=== PATIENT | male | born 1995 | race Caucasian/White ===

== ENCOUNTER 2018-07-20 18:33 | Emergency (ER) | payer OTHER ==
[~2018-07-20 18:33] MED LIST: Iopamidol 370 76% 100 ML VIAL ONE
[2018-07-20] MEDS ORDERED: Ondansetron PF 4 MG/2 ML Vial ONE ×2 (18:43→20:14)
[2018-07-20] MEDS ORDERED: Promethazine HCl 25 MG/ML VIAL ONE (18:57)
[2018-07-20] MEDS ORDERED: Sodium Chloride 0.9% 1,000 ML ONE ×2 (18:57→20:14)
[2018-07-20 19:04] LABS: #Basophils 0.1 thou/uL (0.0-0.2); #Lymphocytes 1.1 thou/uL (1.20-3.40); #Monocytes 0.8 thou/uL (0.11-0.59); #Neutrophils 11.2 thou/uL (1.40-6.50); %Basophils 0.5 % (0.0-1.0); %Neutrophils 85.5 % (42.0-75.0); Hemoglobin 16.2 g/dL (14.0-18.0); Mean Corpuscular HGB CONC 32.4 g/dL (32.0-36.0); Mean Corpuscular Hemoglobin 30.4 pg (27.0-31.0); Mean Corpuscular Volume 93.8 fL (78.0-98.0); Mean Platelet Volume 6.9 fL (7.4-10.4); Platelet Count 302 thou/uL (130-400); Red Blood Cell (RBC) Count 5.33 mill/uL (4.70-6.10); White Blood Cell (WBC) Count 13.1 thou/uL (4.8-10.8)
[2018-07-20 19:21] LABS: ALT (SGPT) 17 U/L (8-55); AST (SGOT) 18 U/L (5-34); Alkaline Phosphatase 65 U/L (40-150); Anion Gap 19 mmol/L (10-20); BUN (Urea Nitrogen) 17 mg/dL (8.9-20.6); Bilirubin, Total 1.3 mg/dL (0.2-1.2); Calc. Creatinine Clearance 0 mL/min (70-130); Calcium 10.3 mg/dL (7.8-10.44); Carbon Dioxide 20 mmol/L (22-29); Chloride 103 mmol/L (98-107); Estimated GFR-MDRD Greater than 90; Globulin 3.1 g/dL (2.4-3.5); Glucose 131 mg/dL (70-105); Lipase 5 U/L (8-78); Potassium 3.6 mmol/L (3.5-5.1); Protein, Total 8.1 g/dL (6.0-8.3); Sodium 138 mmol/L (136-145)
--- NOTE | 2018-07-20 20:55 | RAD ---
CHEST ONE VIEW ABDOMEN TWO VIEWS 07/20/18 HISTORY: Nausea and vomiting. FINDINGS: CHEST ONE VIEW: Normal cardiac silhouette. Pulmonary vessels and hilum are normal. No masses or consolidation. No pne umothorax or osseous abnormalities . Two views abdomen, nonspecific bowel gas pattern. No suspicious densities in the abdomen or pelvis. N o pneumoperitoneum. No differential air fluid levels. IMPRESSION: 1. No acute cardiopulmonary process. 2. Nonspecific bowel gas pattern. POS: [facility]
[2018-07-20] MEDS ORDERED: Prochlorperazine 10 MG/2 ML VIAL ONE (21:58)
[2018-07-20] MEDS ORDERED: Sodium Chloride 0.9% 250 ML 250 ML ONE (21:58)
[2018-07-20] MEDS ORDERED: diphenhydrAMINE 50 MG/ML VIAL ONE (21:58)
--- NOTE | 2018-07-21 07:39 | CT ---
ABDOMEN CT WITH CONTRAST PELVIC CT WITH CONTRAST 07/20/18 HISTORY: Abdominal pain and vomiting. Weakness. COMPARISON: None. FINDINGS: ABDOMEN CT: Limited evaluation due to motion degradation. Lung bases are clear. Normal heart size. Unremarkable a gertrudis. Portal vein is patent. There is nonspecific periportal edema. Gallbladder is unremarkable. Liver, spleen, pancreas and adrenals glands have appropriate enhancement. Symmetric enhancement of the kidneys. Bilaterally, no obstructive uropathy. There is a small amount of stranding of the anterior abdominal mesentery which is nonspecific. No mesenteric mass, lymphadenopathy or free air. Limited evaluation of the alimentary canal by lack of oral contrast. No evidence of bowel obstruction . There is mild mucosal thickening involving the distal ileum/terminal ileum. Normal caliber appendix is identified. The colon is decompressed and cannot be adequately assessed. No obvious pericolonic f at stranding. Mucosal prominence of the cecum, ascending colon, transverse colon, and descending colo n is likely due to inadequate distention. PELVIC CT: The urinary bladder is unremarkable. No pelvic mass, lymphadenopathy, free air or free fluid. There are no lytic or blastic lesions in the osseous structures. IMPRESSION: 1. Normal caliber appendix. 2. Mucosal thickening involving the distal and terminal ileum. Correlate for infectious, or infl ammatory process. POS: [facility]
== END 2018-07-20 23:18 | disposition home or self-care (01) ==
LOC: NAV ERS 18:33
DX: R11.2 Nausea with vomiting, unspecified (principal); F17.210 Nicotine dependence, cigarettes, uncomplicated
CPT/HCPCS: 74022; 74177; 80053; 83690; 85025; J0780; J1200; J2405; J2550; J7050